=== PATIENT | female | born 1985 | race Caucasian/White ===

== ENCOUNTER 2022-10-02 08:00 | Outpatient (CLI) | payer OTHER ==
[2022-10-02 17:41] LABS: BASOPHILS % (AUTO) 0.5 %; EOSINOPHILS # (AUTO) 0.1 10^3/uL (0.0-0.7); EOSINOPHILS % (AUTO) 1.3 %; HCT - HEMATOCRIT 33.1 % (37.0-47.0); HGB - HEMOGLOBIN 10.2 g/dL (12.0-16.0); LYMPHOCYTES # (AUTO) 1.6 10^3/uL (1.5-3.5); LYMPHOCYTES % (AUTO) 39.7 %; MEAN CORPUSCULAR HEMOGLOBIN 25.6 pg (27.0-31.0); MEAN CORPUSCULAR HGB CONC 30.8 g/dL (32.0-36.0); MEAN CORPUSCULAR VOLUME 83.2 fL (81.0-99.0); MEAN PLATELET VOLUME 11.7 fL (7.9-10.8); MONOCYTES # (AUTO) 0.3 10^3/uL (0.0-1.0); MONOCYTES % (AUTO) 6.9 %; NEUTROPHILS % (AUTO) 51.3 %; PLT - PLATELET COUNT 238 10^3/uL (130-450); RED BLOOD COUNT 3.98 10^6/uL (4.20-5.40); RED CELL DISTRIBUTION WIDTH 15.8 % (12.0-15.0); WHITE BLOOD COUNT 3.9 x10^3/uL (4.8-10.8)
[2022-10-02 17:58] LABS: ALBUMIN/GLOBULIN RATIO 1.4 (1.0-2.2); BILIRUBIN,TOTAL 0.4 mg/dL (0.2-1.0); CALCIUM 9.2 mg/dL (8.5-10.3); CREATININE 0.6 mg/dL (0.4-1.0); TOTAL PROTEIN 6.8 g/dL (6.7-8.2)
[2022-10-02 18:14] LABS: THYROID STIMULATING HORMONE 2.2 uIU/mL (0.34-5.60)
== END 2022-10-02 23:59 | disposition home or self-care (01) ==
LOC: LAB.N 08:00
PROVIDERS: ATTEND Nurse Practitioner
DX: R11.0 Nausea (principal)
CPT/HCPCS: 36415; 80053; 84443; 85025

== ENCOUNTER 2024-06-02 09:32 | Outpatient (CLI) | payer OTHER ==
--- NOTE | 2024-06-02 11:47 | MRI Report ---
PROCEDURE: Lumbar Spine WO INDICATIONS: LOW BACK PAIN TECHNIQUE: Noncontrast sagittal T1 spin echo and T2 fast echo, sagittal STIR, axial T1 and T2 fast spin echo thr ough the lumbar spine. In cases with scoliosis, additional coronal T2 fast spin echo may be performe d. COMPARISON: None. FINDINGS: Image quality: Diagnostic, with note made of motion artifact. Alignment and Curvature: There is nor mal bony alignment. Bone Marrow: Marrow is of normal overall signal. No acute vertebral body compression fractures. Spinal Cord: Conus medullaris terminates at the L1 level. Visualized cord demonstrates normal signa l and size. Paraspinous Soft Tissues: No paravertebral masses. T12-L1: Normal in appearance. L1-L2: The disc height and disc signal are well preserved. Mild disc bulge is seen, with a central disc protrusion. Note is made of an annular fissure posteriorly. No neural foraminal narrowing is se en. No significant central canal narrowing is seen. L2-L3: Normal in appearance. L3-L4: The disc height is well-preserved. There is loss of disc signal seen. Mild disc bulge is se en. Mild facet hypertrophy is seen. There is mild left-sided and no right-sided neuroforaminal yue rowing. No central canal narrowing is seen. L4-L5: The disc height is well-preserved. There is loss of disc signal seen. Mild disc bulge is s een, with a mild central disc protrusion. Note is made of an annular fissure posteriorly. Mild facet hypertrophy is seen. Mild to moderate bilateral neuroforaminal narrowing is seen. Minimal central ca nal narrowing is seen. L5-S1: Moderate loss of disc height and signal are seen. Reactive marrow endplate changes are seen anteriorly, which are hyperintense on T1-weighted and T2-weighted imaging, without significant incre ased STIR signal. 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 Mild disc bulge is seen, with a mild central disc extrusion, with minimal inferior migration of the disc material. Note is made of an annular fissure posteriorly. Mild facet hypertrophy is see n. Moderate bilateral neural foraminal narrowing is seen. Mild central canal narrowing is seen. IMPRESSION: Lumbar spine degenerative changes are seen, which are worst at the L5-S1 level. Reviewed by: Je Sagastume MD on 06/02/2024 10:46 AM SHEA Approved by: Je Sagastume MD on 06/02/2024 10:46 AM SHEA Station ID: [id number]
== END 2024-06-02 09:33 | disposition home or self-care (01) ==
LOC: DI 09:32
PROVIDERS: ATTEND Nurse Practitioner Family
DX: M51.36 Other intervertebral disc degeneration, lumbar region (principal); M48.061 Spinal stenosis, lumbar region without neurogenic claudication; M47.816 Spondylosis without myelopathy or radiculopathy, lumbar region; M51.26 Other intervertebral disc displacement, lumbar region; M51.37 Other intervertebral disc degeneration, lumbosacral region; M48.07 Spinal stenosis, lumbosacral region; M47.817 Spondylosis without myelopathy or radiculopathy, lumbosacral region; M51.27 Other intervertebral disc displacement, lumbosacral region